=== PATIENT | female | born 1960 | race Caucasian/White ===

== ENCOUNTER 2019-12-22 13:16 | Inpatient (IN) | payer MEDICARE, OTHER ==
[~2019-12-22] VITALS: Ht 165.1 cm; Wt 111.0 kg
[2019-12-22] MEDS ORDERED: SERT100T12 PO (13:56)
[2019-12-22] MEDS ORDERED: UNKNOWN BP MEDS PO (13:56)
[2019-12-22 14:06] LABS: GLUCOSE,POINT OF CARE 169 MG/DL (70-110)
[2019-12-22 15:18] LABS: BASOPHILS % (AUTO) 0.8 % (0.0-2.0); HEMATOCRIT 39.9 % (36-46); HEMOGLOBIN 12.8 g/dL (12.0-16.0); LYMPHOCYTES # (AUTO) 1.9 K/uL (1.0-4.8); LYMPHOCYTES % (AUTO) 26.1 % (22.0-44.0); MEAN CORPUSCULAR HEMOGLOBIN 25.3 pg (26.0-34.0); MEAN CORPUSCULAR VOLUME 79 fL (80-100); MONOCYTES # (AUTO) 0.7 K/uL (0.1-1.0); MONOCYTES % (AUTO) 9.2 % (2.0-9.0); NEUTROPHILS # (AUTO) 4.4 K/uL (1.8-7.7); NEUTROPHILS % (AUTO) 61.9 % (40.0-70.0); PLATELET COUNT (AUTO) 229 K/uL (150-450); RED BLOOD CELL COUNT(AUTO) 5.05 MIL/uL (4.00-5.20); RED CELL DISTRIBUTION WIDTH 16.3 % (11.5-14.5)
[2019-12-22 15:28] LABS: ANION GAP 8 mmol/L (8-16); CALCIUM, TOTAL 9.3 mg/dL (8.8-10.5); CARBON DIOXIDE 28 mmol/L (22-29); CHLORIDE 106 mmol/L (98-107); CREATININE 0.81 mg/dL (0.60-1.30); GLOMERULAR FILTR. RATE CALC > 60 mL/min (>60); GLUCOSE,RANDOM 146 mg/dL (70-110); POTASSIUM 4.5 mmol/L (3.5-5.1); SODIUM SERUM 142 mmol/L (136-145); UREA NITROGEN, BLOOD 15 mg/dL (7-18)
[2019-12-22 15:30] LABS: PROTHROMBIN TIME 10.6 SEC (9.4-11.6)
[2019-12-22 15:34] LABS: ALANINE AMINOTRANSFERASE 57 U/L (12-78); ALBUMIN 3.6 g/dL (3.4-5.0); ALKALINE PHOSPHATASE 91 U/L (46-116); ASPARTATE AMINOTRANSFERASE 25 U/L (15-37); BILIRUBIN,TOTAL 0.2 mg/dL (0.1-1.0)
[2019-12-22] MEDS ORDERED: 0.9% SODIUM CHLORIDE 10 ML SYRINGE IVP PRN (17:15)
[2019-12-22] MEDS ORDERED: ONDANSETRON HCL 4 MG/2 ML VIAL IVP PRN ×2 (17:15→22:30)
[2019-12-22] MEDS ORDERED: ACETAMINOPHEN 325 MG TABLET PO PRN ×2 (17:15→22:30)
[2019-12-22 20:50] VITALS: BP 145/45
[2019-12-22] MEDS ORDERED: LIDOCAINE 1% 10 ML VIAL INJ ONE (21:15)
[2019-12-22] MEDS ORDERED: MAGNESIUM HYDROXIDE SUSPENSION 30 ML UDCUP PO PRN (22:30)
[2019-12-22] MEDS ORDERED: HYDROCODONE/ACETAMINOPHEN 5-325 MG TABLET PO PRN (22:30)
[2019-12-22] MEDS ORDERED: MORPHINE SULFATE 2 MG/ML SYRINGE IVP PRN (22:30)
[2019-12-22] MEDS ORDERED: BISACODYL 10 MG RECTAL RECTAL SUPPOSITORY PR PRN (22:30)
[2019-12-22] MEDS ORDERED: ZOLPIDEM TARTRATE 5 MG TABLET PO PRN (22:30)
[2019-12-22 23:25] LABS: GLUCOSE, CSF 76 mg/dL (50-80); TOTAL PROTEIN, CSF 27 mg/dL (15-45)
[2019-12-23] MEDS: HEPARIN SODIUM,PORCINE 5,000 UNITS/ML VIAL SQ SCH ×3 (00:03→15:26)
[2019-12-23 00:09] VITALS: BP 129/56
[2019-12-23 00:26] LABS: APPEARANCE,CSF CLEAR (CLEAR); COLOR,CSF COLORLESS (COLORLESS); CSF 2ND TUBE NUMBER 4; CSF TOTAL VOLUME 11.5 mL; CSF TUBE NUMBER 1; LYMPHOCYTES1,CSF 0 %; MONOCYTES1,CSF 0 %; NEUTROPHILS1,CSF 0 %; RED BLOOD CELL1,CSF 334.4 CMM (0-0)
[2019-12-23 00:27] LABS: APPEARANCE2,CSF CLEAR (CLEAR); COLOR2,CSF COLORLESS (COLORLESS); LYMPHOCYTES2,CSF 0 %; MONOCYTES2,CSF 0 %; NEUTROPHILS2,CSF 0 %
[2019-12-23 03:57] VITALS: BP 135/65
[2019-12-23 07:58] VITALS: BP 122/67
[2019-12-23] MEDS ORDERED: PANTOPRAZOLE SODIUM 40 MG DR TABLET PO SCH (09:00)
[2019-12-23] MEDS ORDERED: DOCUSATE SODIUM 100 MG CAPSULE PO SCH (09:00)
[2019-12-23 11:41] VITALS: BP 128/72
[2019-12-23 15:27] VITALS: BP 142/51
== END 2019-12-23 17:03 | disposition left against medical advice (07) | DRG 42 ==
LOC: EMS 13:18 → 6N 18:31
PROVIDERS: ADMIT Internal Medicine; ATTEND Internal Medicine
PROC: 009U3ZZ Drainage of Spinal Canal, Percutaneous Approach (ICD-10-PCS; principal; 2019-12-23)
DX: A52.3 Neurosyphilis, unspecified (principal); E03.9 Hypothyroidism, unspecified; F32.9 Major depressive disorder, single episode, unspecified; R73.03 Prediabetes; I10 Essential (primary) hypertension; Z53.29 Procedure and treatment not carried out because of patient's decision for other reasons
CPT/HCPCS: 62270; 70450; 82945; 84157; 86592; 86593; 86780; 87070; 87205; 89051; J1644; J3490